=== PATIENT | female | born 1990 | race Two or more races ===

== ENCOUNTER 2021-04-08 15:46 | Inpatient (IN) ==
[2021-04-08] MEDS ORDERED: HYDROmorphone 0.5 MG/0.5 ML SYRINGE IV ONE ×2 (19:49→22:34)
[2021-04-08] MEDS ORDERED: diPHENhydraMINE IV 50 MG/ML 1 ml VIAL (BENADRYL) IV ONE ×2 (19:49→22:35)
[2021-04-08] MEDS ORDERED: NS 0.9% 1000 ml BAG 1,000 ML IV ONE (19:49)
[2021-04-08 21:10] LABS: ABS Basophils 0.1 10^3/ul (0-0.2); ABS Eosinophils 0.1 10^3/ul (0-0.6); ABS Lymphocytes 2.4 10^3/ul (1.0-4.8); ABS Monocytes 0.3 10^3/ul (0-0.8); ABS Neutrophils 4.9 10^3/ul (1.5-7.7); Corrected Retic Count 1.6 % (0.5-1.5); Hematocrit 32 % (35-47); Hematocrit for Retic CNT 32 % (35-47); Hemoglobin 10.2 g/dL (12.0-16.0); Immature Retic Fraction 0.56; Lymphocyte % 30.8 %; Mean Corpuscular HGB Conc 32 g/dL (31-36); Mean Corpuscular Hemoglobin 26 pg (27-31); Mean Corpuscular Volume 81 fL (80-97); Mean Platelet Volume 7.6 fL (7.4-10.4); Nucleated Red Blood Cells % 0.1; Platelet Count 389 10^3/uL (150-450); RBC Retic Count 3.92 10^6/uL (3.70-4.87); Red Blood Count 3.92 10^6 /uL (3.70-4.87); Red Cell Distribution Width 21 % (10-15); White Blood Count 7.8 10^3/uL (3.5-10.8)
[2021-04-08 21:21] LABS: INR 1.11 (0.86-1.15)
[2021-04-08 21:28] LABS: Albumin 3.9 g/dL (3.2-5.2); Albumin/Globulin Ratio 1.2 (1-3); C Reactive Protein 9.4 mg/L (<8.01); Calcium 9.1 mg/dL (8.6-10.3); EGFR African American 128.6 (>60); EGFR Non-African American 106.3 (>60); Globulin 3.2 g/dL (2-4); Potassium 3.9 mmol/L (3.5-5.0); Total Bilirubin 0.2 mg/dL (0.2-1.0); Total Protein 7.1 g/dL (6.4-8.9)
[2021-04-09] MEDS ORDERED: diPHENhydraMINE IV 50 MG/ML 1 ml VIAL (BENADRYL) IV ONE (00:31)
[2021-04-09] MEDS ORDERED: HYDROmorphone 1 MG/1 ML SYRINGE IV SLOW PU ONE (00:33)
[2021-04-09] MEDS ORDERED: diPHENhydraMINE IV 50 MG/ML 1 ml VIAL (BENADRYL) IV PRN (00:48)
[2021-04-09] MEDS ORDERED: Warfarin per PHARMACY **NOTE FOLLOW UP SCH (01:00)
[2021-04-09] MEDS ORDERED: Enoxaparin 40 MG/0.4 ML SYR SUBCUT SCH (01:00)
[2021-04-09] MEDS: HYDROmorphone 1 MG/1 ML SYRINGE IV SLOW PU PRN ×7 (04:57→23:02)
[2021-04-09] MEDS ORDERED: diPHENhydraMINE IV 50 MG/ML 1 ml VIAL (BENADRYL) IV SCH ×2 (05:00→06:00)
[2021-04-09] MEDS: Pantoprazole VIAL 40 MG VIAL IV SCH ×2 (05:56→21:18)
[2021-04-09 06:05] LABS: ABS Eosinophils 0.1 10^3/ul (0-0.6); ABS Lymphocytes 2.1 10^3/ul (1.0-4.8); ABS Monocytes 0.4 10^3/ul (0-0.8); ABS Neutrophils 4.2 10^3/ul (1.5-7.7); Eosinophil % 1.2 %; Hematocrit 31 % (35-47); Hemoglobin 9.8 g/dL (12.0-16.0); Lymphocyte % 30.1 %; Mean Corpuscular HGB Conc 32 g/dL (31-36); Mean Corpuscular Hemoglobin 26 pg (27-31); Mean Corpuscular Volume 82 fL (80-97); Mean Platelet Volume 7.6 fL (7.4-10.4); Nucleated Red Blood Cells % 0.1; Platelet Count 370 10^3/uL (150-450); Red Blood Count 3.75 10^6 /uL (3.70-4.87); Red Cell Distribution Width 22 % (10-15); White Blood Count 6.8 10^3/uL (3.5-10.8)
[2021-04-09 06:28] LABS: Calcium 8.7 mg/dL (8.6-10.3); EGFR African American 116.2 (>60); Potassium 3.7 mmol/L (3.5-5.0)
[2021-04-09] MEDS ORDERED: Perflutren Lipid Microsphere 3 ML VIAL ONE (08:03)
[2021-04-09] MEDS: diPHENhydraMINE IV 50 MG/ML 1 ml VIAL (BENADRYL) IV PRN ×4 (12:04→23:02)
[2021-04-09 14:39] LABS: INR 1.1 (0.86-1.15)
[2021-04-10] MEDS: HYDROmorphone 1 MG/1 ML SYRINGE IV SLOW PU PRN ×3 (02:50→09:30)
[2021-04-10] MEDS: diPHENhydraMINE IV 50 MG/ML 1 ml VIAL (BENADRYL) IV PRN ×6 (02:51→21:22)
[2021-04-10] MEDS: Prochlorperazine 5 mg/ml 2 ml VIAL (10 mg) IV PRN ×3 (02:51→21:23)
[2021-04-10 05:47] LABS: ABS Eosinophils 0.1 10^3/ul (0-0.6); ABS Lymphocytes 2.2 10^3/ul (1.0-4.8); ABS Monocytes 0.3 10^3/ul (0-0.8); ABS Neutrophils 4.2 10^3/ul (1.5-7.7); Eosinophil % 1.4 %; Hematocrit 31 % (35-47); Hemoglobin 10.2 g/dL (12.0-16.0); Lymphocyte % 31.9 %; Mean Corpuscular HGB Conc 33 g/dL (31-36); Mean Corpuscular Hemoglobin 27 pg (27-31); Mean Corpuscular Volume 81 fL (80-97); Mean Platelet Volume 7.5 fL (7.4-10.4); Nucleated Red Blood Cells % 0.1; Platelet Count 367 10^3/uL (150-450); Red Blood Count 3.82 10^6 /uL (3.70-4.87); Red Cell Distribution Width 21 % (10-15); White Blood Count 6.8 10^3/uL (3.5-10.8)
[2021-04-10 05:52] LABS: INR 1.12 (0.86-1.15)
[2021-04-10 06:00] LABS: Albumin 3.8 g/dL (3.2-5.2); Albumin/Globulin Ratio 1.1 (1-3); EGFR African American 124.2 (>60); EGFR Non-African American 102.7 (>60); Globulin 3.5 g/dL (2-4); Total Bilirubin 0.2 mg/dL (0.2-1.0); Total Protein 7.3 g/dL (6.4-8.9)
[2021-04-10] MEDS: Pantoprazole VIAL 40 MG VIAL IV SCH ×2 (06:34→17:15)
[2021-04-10] MEDS ORDERED: Naloxone 0.4 mg VIAL 0.4 mg/ml 1 ml VIAL IV PUSH PRN (09:32)
[2021-04-10] MEDS ORDERED: HYDROmorphone PCA 20 MG/20 ML PCA.SYRING PCA SCH ×2 (10:00→11:56)
[2021-04-10] MEDS ORDERED: HYDROmorphone 1 MG/1 ML SYRINGE IV SLOW PU ONE (22:08)
[2021-04-11] MEDS: HYDROmorphone PCA 20 MG/20 ML PCA.SYRING PCA SCH ×2 (00:50→11:58)
[2021-04-11] MEDS: diPHENhydraMINE IV 50 MG/ML 1 ml VIAL (BENADRYL) IV PRN ×6 (01:09→21:28)
[2021-04-11] MEDS: Pantoprazole VIAL 40 MG VIAL IV SCH (04:39)
[2021-04-11] MEDS: Prochlorperazine 5 mg/ml 2 ml VIAL (10 mg) IV PRN ×3 (04:39→17:35)
[2021-04-11] MEDS ORDERED: HYDROmorphone PCA 20 MG/20 ML PCA.SYRING PCA SCH (15:15)
[2021-04-12] MEDS: diPHENhydraMINE IV 50 MG/ML 1 ml VIAL (BENADRYL) IV PRN ×5 (01:56→21:57)
[2021-04-12] MEDS: Prochlorperazine 5 mg/ml 2 ml VIAL (10 mg) IV PRN ×2 (01:57→18:05)
[2021-04-12] MEDS ORDERED: HYDROmorphone 1 MG/1 ML SYRINGE IV ONE (09:39)
[2021-04-12] MEDS ORDERED: Lorazepam PYXIS KEY PRN (09:40)
[2021-04-12] MEDS ORDERED: LORazepam 2 mg VIAL 1 ml IV PUSH PRN (09:40)
[2021-04-12 12:51] LABS: Hematocrit 33 % (35-47); Hematocrit for Retic CNT 33 % (35-47); Hemoglobin 10.6 g/dL (12.0-16.0); Immature Retic Fraction 0.52; Mean Corpuscular HGB Conc 32 g/dL (31-36); Mean Corpuscular Hemoglobin 26 pg (27-31); Mean Corpuscular Volume 82 fL (80-97); Mean Platelet Volume 7.6 fL (7.4-10.4); Platelet Count 361 10^3/uL (150-450); RBC Retic Count 4.05 10^6/uL (3.70-4.87); Red Blood Count 4.05 10^6 /uL (3.70-4.87); Red Cell Distribution Width 21 % (10-15); White Blood Count 7.5 10^3/uL (3.5-10.8)
[2021-04-12 13:05] LABS: Anion Gap 8 mmol/L (2-11); Blood Urea Nitrogen 13 mg/dL (6-24); CO2 Carbon Dioxide 27 mmol/L (22-32); Calcium 9.7 mg/dL (8.6-10.3); Chloride 100 mmol/L (101-111); EGFR African American 122.1 (>60); EGFR Non-African American 100.9 (>60); Glucose 111 mg/dL (70-100); Potassium 3.9 mmol/L (3.5-5.0); Sodium 135 mmol/L (135-145)
[2021-04-12 13:06] LABS: Total Iron Binding Capacity 316 mcg/dL (250-450); Transferrin 226 mg/dL (203-362)
[2021-04-12 13:25] LABS: Ferritin 254.8 ng/mL (11-307)
[2021-04-12] MEDS: HYDROmorphone 1 MG/1 ML SYRINGE IV PRN ×3 (14:00→21:57)
[2021-04-12 16:27] LABS: % Iron Saturation 15 % (15-55); Iron 44 ug/dL (50-212); Total Iron Binding Capacity 287 mcg/dL (250-450); Transferrin 205 mg/dL (203-362); Unsaturated Iron Binding < 272 ug/dL
[2021-04-13] MEDS: diPHENhydraMINE IV 50 MG/ML 1 ml VIAL (BENADRYL) IV PRN ×6 (02:06→22:28)
[2021-04-13] MEDS: HYDROmorphone 1 MG/1 ML SYRINGE IV PRN ×6 (02:07→22:29)
[2021-04-13] MEDS: Prochlorperazine 5 mg/ml 2 ml VIAL (10 mg) IV PRN ×3 (02:07→18:35)
[2021-04-13 06:55] LABS: ABS Eosinophils 0.1 10^3/ul (0-0.6); ABS Monocytes 0.3 10^3/ul (0-0.8); ABS Neutrophils 3.4 10^3/ul (1.5-7.7); Eosinophil % 1.4 %; Hematocrit 29 % (35-47); Hemoglobin 9.4 g/dL (12.0-16.0); Lymphocyte % 34.4 %; Mean Corpuscular HGB Conc 32 g/dL (31-36); Mean Corpuscular Hemoglobin 26 pg (27-31); Mean Corpuscular Volume 81 fL (80-97); Mean Platelet Volume 7.5 fL (7.4-10.4); Nucleated Red Blood Cells % 0.1; Platelet Count 327 10^3/uL (150-450); Red Blood Count 3.62 10^6 /uL (3.70-4.87); Red Cell Distribution Width 21 % (10-15); White Blood Count 5.9 10^3/uL (3.5-10.8)
[2021-04-13 07:09] LABS: Albumin 3.6 g/dL (3.2-5.2); Calcium 8.9 mg/dL (8.6-10.3); EGFR African American 122.1 (>60); EGFR Non-African American 100.9 (>60); Potassium 3.8 mmol/L (3.5-5.0); Total Protein 6.7 g/dL (6.4-8.9)
[2021-04-13 07:10] LABS: Albumin/Globulin Ratio 1.2 (1-3); Globulin 3.1 g/dL (2-4); Total Bilirubin 0.2 mg/dL (0.2-1.0)
[2021-04-14] MEDS: Prochlorperazine 5 mg/ml 2 ml VIAL (10 mg) IV PRN ×3 (02:26→17:57)
[2021-04-14] MEDS: diPHENhydraMINE IV 50 MG/ML 1 ml VIAL (BENADRYL) IV PRN ×5 (02:26→19:09)
[2021-04-14] MEDS: HYDROmorphone 1 MG/1 ML SYRINGE IV PRN ×4 (02:27→17:03)
[2021-04-14 06:29] LABS: Hematocrit 31 % (35-47); Hemoglobin 10.1 g/dL (12.0-16.0); Mean Corpuscular HGB Conc 33 g/dL (31-36); Mean Corpuscular Hemoglobin 27 pg (27-31); Mean Corpuscular Volume 81 fL (80-97); Mean Platelet Volume 7.6 fL (7.4-10.4); Platelet Count 348 10^3/uL (150-450); Red Blood Count 3.82 10^6 /uL (3.70-4.87); Red Cell Distribution Width 21 % (10-15); White Blood Count 5.7 10^3/uL (3.5-10.8)
[2021-04-14 06:35] LABS: INR 1.06 (0.86-1.15)
[2021-04-14 06:42] LABS: Calcium 9.3 mg/dL (8.6-10.3); EGFR African American 126.4 (>60); EGFR Non-African American 104.5 (>60)
[2021-04-14] MEDS ORDERED: HYDROmorphone 1 MG/1 ML SYRINGE IV PRN (07:30)
[2021-04-14 12:50] VITALS: BP 127/78
[2021-04-15 10:50] LABS: Hb A 97.9 % (95.8-98.0); Hb A2 2.1 % (2.0-3.3)
== END 2021-04-14 20:24 | disposition left against medical advice (07) | DRG 812 ==
LOC: ED 15:46 → SUATTDRO 23:15 → MEDTELE 23:15
PROVIDERS: ADMIT Internal Medicine; ATTEND Internal Medicine